=== PATIENT | female | born 1955 | race Caucasian/White ===

== ENCOUNTER → 2024-03-26 13:04 | Outpatient (REF) | payer OTHER, SELFPAY | LOC: HWRAD 13:04 | PROVIDERS: ATTENDING PHYSICIAN Podiatrist Primary Podiatric Medicine; FAMILY PHYSICIAN Family Medicine | DX: M19.90 Unspecified osteoarthritis, unspecified site (principal); M14.672 Charcot's joint, left ankle and foot | CPT/HCPCS: 73630 ==

== ENCOUNTER 2024-08-25 06:10 | Day surgery (SDC) | payer OTHER, SELFPAY ==
[2024-07-31 14:13] VITALS: BMI 29.0
[2024-07-31 14:32] LABS: Hematocrit 37.7 % (37.0-47.0); Hemoglobin 13.3 g/dL (12.0-16.0); Mean Corp Hgb Conc. 35.3 g/dL (33.0-37.0); Mean Corpuscular Hgb 31.1 pg (27.0-31.0); Mean Corpuscular Volume 88.3 fL (81.0-99.0); Mean Platelet Volume 8.8 fL (7.4-10.4); Platelet Count 328 10^3/uL (130-400); Red Blood Cell Count 4.27 10^6/uL (4.20-5.40); Red Cell Dist. Width 12.6 % (11.5-14.5); White Blood Cell Count 10.2 10^3/uL (4.8-10.8)
[2024-07-31 15:24] LABS: ALT (SGPT) 22 U/L (0-35); AST (SGOT) 28 U/L (14-36); Albumin 4.5 g/dl (3.5-5.0); Alkaline Phosphatase 77 U/L (38-126); Blood Urea Nitrogen 12 mg/dl (7-17); Calcium 9.8 mg/dl (8.4-10.2); Carbon Dioxide 33 mmol/L (22-30); Chloride 95 mmol/L (98-107); Estimated Creatinine Clearance 62 ml/min; Glucose 85 mg/dl (70-99); Potassium 4.3 mmol/L (3.5-5.1); Sodium 137 mmol/L (135-145); Total Bilirubin 0.4 mg/dl (0.2-1.3); Total Protein 7.4 g/dl (6.3-8.2); eGFR > 60.00
[2024-08-01 10:33] LABS: Glycohemoglobin (HgbA1c) 5.2 % (4.0-5.6)
--- NOTE | 2024-08-12 12:24 | VNURNOTE ---
Patient is scheduled for an elective R TKA on 08/25/24- she is a same day patient with Dr Morales. Spoke with patient prior to surgery. Introduced role of [facility] Liaison. Patient reports that she lives with spouse in a MULTI story home.
There are 3 steps to enter.
There is a full bath on the entry clerk. There are circular stairs to the second floor. She has a recliner that she can sleep in on the first floor.
She has a cane and rolling walker.
PCP is Dr Veronica Felix.
Discussed [facility] joint protocol and post surgical plans.
Reviewed that she will have [facility] services initially and will then start outpatient PT.
Patient selects [facility]N for home care needs and will go to [facility] outpt PT. She will schedule it for 08/28/24.
Patient is in agreement with plan and states that her spouse will be home with her. Her sister Brandie (KJ) will bring her to hospital day of surgery and pick her up. Brandie cell # [phone]. Advised to bring RW with her day of surgery. Referral
placed in [facility].
Plan: [facility] per [facility] joint protocol then outpt PT on 08/28/24- At time of call, pt to make outpt PT appt.
[2024-08-19 11:24] VITALS: BMI 29.0
[2024-08-19 12:05] VITALS: BMI 29.0
[2024-08-25] VITALS (13 sets, daily range): BP systolic 97–156; BP diastolic 53–84; PULSE 65; O2SAT 98; BMI 29.0
[2024-08-25] MEDS: NORMOSOL-R/PLASMALYTE-A 1000 IV (06:18)
[2024-08-25] MEDS: CELEBREX 200 MG PO (06:18)
--- NOTE | 2024-08-25 06:53 | W.DS.TRANS ---
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
-
Discharge Instructions:
Sleep Apnea Risk Low
Discharge Diagnosis/Procedures Right knee replacement
Diet As tolerated
Activity As tolerated,With Walker
Driving Restrictions No driving
Bathing Restrictions OK to Shower
Other Services PT
Wound Care Aquacel dressing in place 7-10 days then
incision open to air
Instructions:
Stand-Alone Forms: SDS Total Hip and Knee D/C
Changes to Home Medications: Yes
Discharge Medications:
DC Medications w/original date entered in [facility]
[place] Plus Cold 1 unit PO PRN PRN congestion 08/19/24
Curcumin Ultra 1 cap PO HS 08/19/24
[place] Xl 2 cap PO BID 08/19/24
atorvastatin 20 mg tablet 20 mg PO DAILY 08/19/24
glucosamine-chondroitin 250 mg-200 mg tablet (Osteo Bi-Flex) 2 tab PO DAILY 08/19/24
hydrochlorothiazide 25 mg tablet 25 mg PO DAILY 08/19/24
losartan 100 mg tablet 100 mg PO DAILY 08/19/24
acetaminophen 500 mg capsule 1,000 mg (2 x 500 mg) PO Q6H PRN Pain #60 caps 08/25/24
aspirin 325 mg tablet 325 mg PO DAILY #30 tabs 08/25/24
dexamethasone 4 mg tablet 4 mg PO BID #7 tabs 08/25/24
docusate sodium 100 mg capsule (Colace) 100 mg PO BID #14 caps 08/25/24
meloxicam 15 mg tablet 15 mg PO DAILY #14 tabs 08/25/24
mupirocin 2 % topical ointment 1 applic topical BID 08/25/24
ondansetron 4 mg disintegrating tablet 4 mg PO Q8H #14 tabs 08/25/24
oxycodone 5 mg tablet 5 mg PO Q6H PRN Pain #30 tabs 08/25/24
sennosides 8.6 mg tablet (Senokot) 8.6 mg PO BID PRN Constipation #14 tabs 08/25/24
Home Medication Changes
dexamethasone 4 mg tablet 4 mg PO BID #7 tabs 08/25/24
docusate sodium 100 mg capsule (Colace) 100 mg PO BID #14 caps 08/25/24
meloxicam 15 mg tablet 15 mg PO DAILY #14 tabs 08/25/24
mupirocin 2 % topical ointment 1 applic topical BID 08/25/24
ondansetron 4 mg disintegrating tablet 4 mg PO Q8H #14 tabs 08/25/24
oxycodone 5 mg tablet 5 mg PO Q6H PRN Pain #30 tabs 08/25/24
sennosides 8.6 mg tablet (Senokot) 8.6 mg PO BID PRN Constipation #14 tabs 08/25/24
Pending Results: No
[2024-08-25] MEDS: ANCEF 5 IV (11:01)
== END 2024-08-25 11:55 | disposition home or self-care (01) ==
LOC: SDS 06:10
PROVIDERS: ATTENDING PHYSICIAN Specialist; FAMILY PHYSICIAN Student in an Organized Health Care Education/Training Program
DX: M17.11 Unilateral primary osteoarthritis, right knee (principal); G56.00 Carpal tunnel syndrome, unspecified upper limb; I10 Essential (primary) hypertension; E66.9 Obesity, unspecified; Z68.30 Body mass index [BMI] 30.0-30.9, adult
CPT/HCPCS: 27447; 36415; 73560; 80053; 83036; 85027; 87070; 93005; 97162; C1713; C1776